=== PATIENT | female | born 1990 | race Caucasian/White ===

== ENCOUNTER 2018-04-12 18:39 | Emergency (ER) | payer BC ==
[2018-04-12 18:54] VITALS: BP 133/85
[2018-04-12] MEDS ORDERED: Rabies VIRUS VACCINE (Imovax)* 2.5 UNIT/ML 1 ML IM ONE (19:05)
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
[2018-04-12] MEDS ORDERED: Tetan/Diph/Pertus SYR(Tdap)* 0.5 ML SYR(BOOSTRIX) use SYR IM ONE (19:17)
[2018-04-12] MEDS ORDERED: Rabies Immune Globulin 10 ML* 150 UNIT/ML VIAL IM ONE (19:18)
== END 2018-04-12 20:15 | disposition home or self-care (01) ==
LOC: UCEAST 18:39
DX: S70.311A Abrasion, right thigh, initial encounter (principal); W55.82XA Struck by other mammals, initial encounter; Y93.16 Activity, rowing, canoeing, kayaking, rafting and tubing; Y92.89 Other specified places as the place of occurrence of the external cause; Z20.3 Contact with and (suspected) exposure to rabies; Z23 Encounter for immunization
CPT/HCPCS: 90375; 90471; 90472; 90715; 96372; 99201; G0463